=== PATIENT | female | born 1940 | race Caucasian/White ===

== ENCOUNTER 2018-04-13 23:38 | Emergency (ER) | payer OTHER, MEDICARE ==
[~2018-04-13] VITALS: Ht 162.5 cm; Wt 77.1 kg
[~2018-04-13 23:38] MED LIST: CIPROFLOXACIN500 MG PO; FLAGYL500 MG PO; PERCOCET 325 MG1 TA2 PO; PRAVASTATIN SOD10 MG PO; RITE AID ACID150 MG PO; VITAMIN D1000 IU PO; ZESTRIL2.5 MG PO
== END 2018-04-14 00:46 | disposition short-term general hospital (02) ==
LOC: ED 23:38
DX: S61.411A Laceration without foreign body of right hand, initial encounter (principal); S30.1XXA Contusion of abdominal wall, initial encounter; R07.89 Other chest pain; M25.552 Pain in left hip; R51 Headache; M54.9 Dorsalgia, unspecified; M25.551 Pain in right hip; Z88.2 Allergy status to sulfonamides; Z79.899 Other long term (current) drug therapy; Z90.710 Acquired absence of both cervix and uterus; V49.59XA Passenger injured in collision with other motor vehicles in traffic accident, initial encounter; Y93.89 Activity, other specified; Y92.488 Other paved roadways as the place of occurrence of the external cause; Y99.8 Other external cause status